=== PATIENT | female | born 1985 | race Caucasian/White ===

== ENCOUNTER 2016-08-07 10:21 | Emergency (ER) | payer BC, OTHER ==
[~2016-08-07] VITALS: Ht 167.6 cm; Wt 53.5 kg
[~2016-08-07 10:21] MED LIST: DIAZ2TAB2 PO; FLUO10TA3 PO; LORA10TA51 PO; MULT-884 PO; VNTHFA/IN PO
[2016-08-07 10:32] VITALS: TEMP 36.9; Ht 167.6 cm; Wt 53.5 kg
[2016-08-07] MEDS ORDERED: LISD50CA4 PO (10:41)
[2016-08-07] MEDS ORDERED: CLON1TAB3 PO (10:41)
[2016-08-07] MEDS ORDERED: ACET325T96 PO (10:42)
[2016-08-07] MEDS ORDERED: DiphenhydrAMINE HCL 50 MG/ML VIAL IV STA (11:00)
[2016-08-07] MEDS ORDERED: FAMOTIDINE 20MG/102 ML D5W IV STA (11:00)
[2016-08-07] MEDS ORDERED: DEXAMETHASONE SOD INJ 4 MG/ML VIAL IV STA (11:00)
[2016-08-07 11:13] VITALS: O2SAT 100
--- NOTE | 2016-08-07 11:41 | DIAGNOSTIC IMAGING REPORT ---
HEAD CT NONCONTRAST CT DOSE: 537.48 mGy.cm HISTORY: Trauma hit head, frontal headache TECHNIQUE: Multiaxial CT images of the head were performed without the use of intravenous contrast. Comparison: None. Findings: The paranasal sinuses and mastoid air cells are clear. The calvarium and skull base are intact. The ventricles and sulci are within normal limits. There is no mass, hematoma, midline shift, or acute infarct. Impression: No acute intracranial abnormality. Electronically signed by: Jerry Krause M.D. 08/07/2016 11:40 AM Dictated Date/Time: 08/07/2016 11:40 AM
[2016-08-07 11:43] LABS: MEAN CELL VOLUME 86.6 fL (80-100); MEAN CORPUSCULAR HGB CONC 33.4 g/dl (32-36); MEAN PLATELET VOLUME 8.5 fL (7.4-10.4); PLATELET COUNT 316 K/uL (130-400); RED BLOOD COUNT 4.04 M/uL (4.2-5.4); WHITE BLOOD COUNT 3.29 K/uL (4.8-10.8)
[2016-08-07 11:44] LABS: BUN/CREATININE RATIO 7.8 (10-20); CALCIUM 8.9 mg/dl (8.5-10.1); POTASSIUM 3.8 mmol/L (3.5-5.1)
[2016-08-07 11:53] LABS: BASO ABS # 0.03 K/uL (0-0.2); BASOPHIL % 0.9 %; COMPLETE YES; EOSINOPHIL % 7.9 %; LYMPH ABS # 1.21 K/uL (1.2-3.4); LYMPHOCYTE % 36.8 %; MYELOCYTE % 0.9 %; NEUTROPHILS % 41.2 %
[2016-08-07] MEDS ORDERED: MoRPHine SULFATE 4 MG/ML 1 ML CARP\\VIAL IV STA (13:14)
[2016-08-07] MEDS ORDERED: ONDANSETRON INJ 2 MG/ML 2 ML VIAL IV STA (13:14)
[2016-08-07] MEDS ORDERED: PRED50TA PO (14:25)
[2016-08-07] MEDS ORDERED: OXYCODONE IR HOME PACK PO ONE (14:30)
[2016-08-07 14:33] VITALS: BP 109/71; PULSE 83; O2SAT 96
--- NOTE | 2016-08-07 20:11 | EMERGENCY ROOM VISIT NOTE ---
History Report prepared by Lewisibattila: Marly Gonzales Under the Supervision of: Dr. Jamir Way M.D. First contact with patient: 10:57 Chief Complaint: HEADACHE Stated Complaint: MARTINEZ, DIZZY, SWOLLEN EYES, ITCHY, HIT HEAD MONDAY History of Present Illness The patient is a 31 year old female who presents to the Emergency Room with complaints of a worsening headache for the past 2 days. She is accompanied by her . The patient rates her current discomfort as a 5/10. She reports Monday night, she was shutting off lights in her home and getting ready to go to bed, when she accidentally ran into a wall and hit her head off the corner of the wall. She saw "stars" but denies any loss of consciousness. She immediately began to experience a headache, and states she has been alternating Tylenol and Ibuprofen for her pain. They have provided minimal relief. Yesterday she started to feel dizzy and stumbled in her closet, but was able to catch herself before fell. She states her left eye has been ecchymotic since the fall, since her face partly hit the wall, but she started to experience itchiness in the eye yesterday. The patient does have NSAID sensitivity, but notes she chose to take the Ibuprofen anyway for her discomfort. At 0330 this morning, she took 2 Tylenol and 1 Klonopin. Her reports she has also been increasingly confused and the patient notes she is having a hard time focusing since the fall. She admits to a new rash over her chest and low back but notes she has history of eczema. She denies any recent contact with any new plants, products or pets. The patient denies fevers, chills, diaphoresis, visual changes, neck pain, chest pain, breathing difficulties, nausea, vomiting , abdominal pain, back pain, melena, hematochezia, urinary symptoms, numbness, weakness, lymphadenopathy, or other complaints. Source of History: patient, spouse/significant other () Onset: 2 days ago Position: head Symptom Intensity: 5/10 Timing: worsening Modifying Factors (Relieving): tylenol, ibuprofen Associated Symptoms: + rash Review of Systems See HPI for pertinent positives and negatives. A total of ten systems were reviewed and were otherwise negative. Past Medical & Surgical Medical Problems: (1) Asthma (2) Migraine (3) Von Willebrand disease Family History FHx: gallbladder disease Kidney disease Lung disease Social History Smoking Status: Never Smoker Alcohol Use: occasionally Drug Use: none Marital Status: Housing Status: lives with family Occupation Status: employed Current/Historical Medications Scheduled Albuterol Hfa (Ventolin Hfa), 2 PUFF PO UD Lisdexamfetamine Dimesylate (Vyvanse), 50 MG PO DAILY Loratadine (Claritin), 10 MG PO DAILY Multiple Vitamin (Multi Vitamin Daily), 1 TAB PO DAILY Prednisone (Prednisone), 50 MG PO DAILY Scheduled PRN Acetaminophen Tab (Tylenol), 650 MG PO Q4 PRN for Headache or Pain Clonazepam (Klonopin), 1 MG PO DAILY PRN for Anxiety/Agitation Allergies Coded Allergies: NSAIDs (Verified Allergy, Unknown, bruising, 08/07/16) Physical Exam Vital Signs Date Time Temp Pulse Resp B/P Pulse Ox O2 Delivery O2 Flow Rate FiO2 08/07/16 14:33 83 16 109/71 96 Room Air 08/07/16 12:47 68 16 105/69 100 Room Air 08/07/16 11:13 100 Room Air 08/07/16 10:32 36.9 94 16 113/81 100 Room Air Physical Exam GENERAL: Awake, alert, uncomfortable-appearing, in no distress HENT: Normocephalic, atraumatic. Oropharynx unremarkable. EYES: Periorbital edema bilaterally. Normal conjunctiva. Sclera non-icteric. NECK: Supple. No nuchal rigidity. FROM. No JVD. RESPIRATORY: Clear to auscultation. CARDIAC: Regular rate, normal rhythm. Extremities warm and well perfused. Pulses equal. ABDOMEN: Soft, non-distended. No tenderness to palpation. No rebound or guarding. No masses. RECTAL: Deferred. MUSCULOSKELETAL: Chest examination reveals no tenderness. The back is symmetrical on inspection without obvious abnormality. There is no CVA tenderness to palpation. No joint edema. LOWER EXTREMITIES: Calves are equal size bilaterally and non-tender. No edema. No discoloration. NEURO: Normal sensorium. No sensory or motor deficits noted. SKIN: Faint erythematous rash with secondary excoriation on upper chest, neck and low back, the hands and legs are spared. Medical Decision & Procedures ER Provider Diagnostic Interpretation: This CT scan was reviewed and interpreted by the radiologist and reviewed by myself. HEAD CT NONCONTRAST CT DOSE: 537.48 mGy.cm HISTORY: Trauma hit head, frontal headache TECHNIQUE: Multiaxial CT images of the head were performed without the use of intravenous contrast. Comparison: None. Findings: The paranasal sinuses and mastoid air cells are clear. The calvarium and skull base are intact. The ventricles and sulci are within normal limits. There is no mass, hematoma, midline shift, or acute infarct. Impression: No acute intracranial abnormality. Electronically signed by: Jerry Krause M.D. 08/07/2016 11:40 AM Laboratory Results 08/07/16 11:10 Red Blood Count 4.04, Mean Corpuscular Volume 86.6, Mean Corpuscular Hemoglobin 29.0, Mean Corpuscular Hemoglobin Concent 33.4, Mean Platelet Volume 8.5 08/07/16 11:10 Test 08/07/16 11:10 08/07/16 11:15 White Blood Count 3.29 K/uL (4.8-10.8) Red Blood Count 4.04 M/uL (4.2-5.4) Hemoglobin 11.7 g/dL (12.0-16.0) Hematocrit 35.0 % (37-47) Mean Corpuscular Volume 86.6 fL (80-100) Mean Corpuscular Hemoglobin 29.0 pg (25-34) Mean Corpuscular Hemoglobin Concent 33.4 g/dl (32-36) Platelet Count 316 K/uL (130-400) Mean Platelet Volume 8.5 fL (7.4-10.4) RDW Standard Deviation 44.8 fL (36.4-46.3) RDW Coefficient of Variation 14.2 % (11.5-14.5) Neutrophils % (Manual) 41.2 % Lymphocytes % (Manual) 36.8 % Monocytes % (Manual) 12.3 % Eosinophils % (Manual) 7.9 % Basophils % (Manual) 0.9 % Myelocytes % 0.9 % Neutrophils # (Manual) 1.36 K/uL (1.4-6.5) Total Absolute Neutrophils 1.36 K/uL (1.4-6.5) Lymphocytes # (Manual) 1.21 K/uL (1.2-3.4) Total Absolute Lymphocytes 1.21 K/uL (1.2-3.4) Monocytes # (Manual) 0.40 K/uL (0.11-0.59) Eosinophils # (Manual) 0.26 K/uL (0-0.5) Basophils # (Manual) 0.03 K/uL (0-0.2) Myelocytes # 0.03 K/uL (0-0) Red Blood Cell Morphology Unremarkable Anion Gap 9.0 mmol/L (3-11) Est Creatinine Clear Calc Drug Dose 67.6 ml/min Estimated GFR () 85.7 Estimated GFR (Non- 74.0 BUN/Creatinine Ratio 7.8 (10-20) Calcium Level 8.9 mg/dl (8.5-10.1) Urine Test NEG (NEG) Laboratory results reviewed by me Medications Administered Medications (Trade) Dose Ordered Sig/Toby Route Start Time Stop Time Status Last Admin Dose Admin Diphenhydramine HCl (Benadryl Inj) 50 mg NOW STAT IV 08/07/16 11:00 08/07/16 11:04 DC 08/07/16 11:16 50 MG Dexamethasone Sodium Phosphate (Decadron Inj) 10 mg NOW STAT IV 08/07/16 11:00 08/07/16 11:04 DC 08/07/16 11:16 10 MG Famotidine (Pepcid 20mg/100 ml) 20 mg ONE STAT IV 08/07/16 11:00 08/07/16 11:04 DC 08/07/16 11:16 20 MG Morphine Sulfate (MoRPHine SULFATE INJ) 4 mg NOW STAT IV 08/07/16 13:14 08/07/16 13:15 DC 08/07/16 13:25 4 MG Ondansetron HCl (Zofran Inj) 4 mg NOW STAT IV 08/07/16 13:14 08/07/16 13:15 DC 08/07/16 13:25 4 MG Oxycodone HCl (Roxicodone Immediate Rel 5MG Home Pack) 1 homepack UD ONCE PO 08/07/16 14:30 08/07/16 14:31 DC 08/07/16 14:30 1 HOMEPACK ED Course 1059: The patient was evaluated in room C3. A complete history and physical exam was performed. 1100: Famotidine 20 mg IV, Decadron 10 mg IV, Benadryl 50 mg IV. 1314: Zofran 4 mg IV, Morphine Sulfate 4 mg IV. 1400: I reevaluated the patient. She is feeling much better. I discussed her results and discharge instructions and she verbalized complete understanding and agreement. 1430: Oxycodone HCl 1 homepack PO. Medical Decision Triage Nursing notes reviewed. The patient's presentation and history were concerning for a rash and a head injury. Etiologies such as concussion, allergic reaction, dermatitis, migraine, tumor, headache, sinus thrombosis, sinusitis, ICH, SAH, infection, as well as others were entertained. The patient was evaluated. She had some mild swelling in the periorbital area. She had a mild rash present. This seemed to be most consistent with a dermatitis, possibly allergic in nature. Contacted also be possible. She was treated with antihistamines and steroids. She was feeling better with regards to the rash and seemed to be improved. The patient had a CT imaging study performed due to her head injury and concussive like symptoms. This was negative for any significant trauma. She had a mild leukopenia on CBC and chem strip panel was unremarkable. Urine test was negative. The patient was given a small dose of morphine and Zofran for her headache. On reassessment she was feeling better. I discussed conservative management. Patient does not have any nuchal rigidity or fever. She had symptoms developed after hitting her head. The exact etiology of her rash was not obvious. This was not purpuric or vesicular. There is no pustular findings. She had no involvement of her hands. Nail beds are normal. The patient does note history of allergy testing but this was about 4 or 5 years ago. This is done for environmental reasons. I did give her concussion instructions. She was given a work note. She was going to follow up with her primary physician. The patient will be placed on prednisone for 4 additional days. She will use over- the-counter antihistamines. The patient was given a small home pack of pain medication in case her symptoms lingered. She does note having a sensitivity to NSAIDs and did take NSAIDs prior to the onset of the rash. I did advise her to stay away from NSAIDs as this may be a cause. The patient was in agreement. If she worsens in any way she will be back to the emergency department for reevaluation. By the evaluation outlined above other emergent etiologies such as those listed in the differential, as well as others, were deemed relatively unlikely. The patient and were informed about the findings as listed above. All questions were answered and they were pleased with the treatment. Return instructions were outlined and the patient was discharged in stable condition. The patient was referred to her PCP for follow-up this week for a recheck of the current condition. The chart was completed utilizing [employer] Speech voice recognition software. Grammatical errors, random word insertions, pronoun errors, and incomplete sentences are an occasional consequence of this system due to software limitations, ambient noise, and hardware issues. Any formal questions or concerns about the content, text, or information contained within the body of this dictation should be directly addressed to the physician for clarification. Impression Primary Impression: Headache Additional Impressions: Concussion Allergic reaction Scribe Attestation The scribe's documentation has been prepared under my direction and personally reviewed by me in its entirety. I confirm that the note above accurately reflects all work, treatment, procedures, and medical decision making performed by me. Departure Information Dispostion Home / Self-Care Prescriptions Prednisone (Prednisone) 50 Mg Tab 50 MG PO DAILY for 4 Days, #4 TAB Prov: Jamir Way MD 08/07/16 Referrals Saulo Love M.D. (PCP) Patient Instructions My [facility] Additional Instructions CONCUSSION DISCHARGE INSTRUCTIONS: What is a concussion? A concussion is a disturbance in the function of the brain caused by a direct or indirect force to the head. It results in a variety of symptoms like: headache, balance problems, nausea, vomiting, vision problems, hearing problems/ringing, drowsiness, irritability, and/or difficulty concentrating or remembering. A concussion may, or may not involve memory problems or loss of consciousness. Concussion instructions: Stop and stay away from ALL physical activity until you are symptom free from: Headaches Balance problems Feeling "dinged" Poor concentration Drowsy Fatigued Rest and avoid strenuous activities for the next few days. Get 8-10 hours of sleep per night. Limit activities that involve significant concentration and attention during this time to speed your recovery. This includes studying, attending school, playing video games, and heavy reading. Your brain needs to rest. Eat right and eat often. Now is the time to feed your brain. Well balanced diets that avoid high sugar foods, sodas, caffeine, etc. are better for your brain. NO ALCOHOL OR DRUGS! Avoid stimulants like caffeine, red bull, mountain dew, "energy" drinks, etc. Tylenol(acetaminophen) may be used for headaches. Use 1000mg every six hours as needed. Avoid using more than 4000mg in a 24 hour period. Avoid anti-inflammatories such as aspirin, ibuprofen, Alleve, naprosyn, Motrin, or Advil as these can interfere with blood clotting and lead to bleeding within the brain after a traumatic injury. Stepwise return to sports for athletes: You may progress to the next step after 24 hours if you are symptom free. If you experience symptoms, you must return to the previous stage and try again after another 24 hours of rest and being symptom free. Best case scenario is full contact game play in 7 days from the time of injury. Remember repeat concussions are worse than the first. Time invested in recovery will allow for better performance and less downtime in the future. If you have any questions see your hardware trainer or make an appointment to see one of the team physicians. 1) No activity, complete rest for 3 days. Once all symptoms have resolved, report to the team physician or hardware trainer to be cleared to progress to step 2. 2) Start light aerobic exercise, such as walking or stationary cycling, no resistance training permitted.(Day 4) 3) Sport specific exercises. Add light resistance slowly. Go slow to allow your body to readapt. (Day 5) 4) Non-contact full speed practice. (Day 6) 5) Full contact practice and/or game play.(Day 7) POST CONCUSSIVE SYNDROME: Occasionally patients can experience a postconcussive syndrome which includes prolonged headaches and memory difficulties. This may occur over the next several days, weeks or rarely, even months. It is important to have a primary care physician follow-up in order to help if the situation develops. Problems could arise over the next 24 to 48 hours. You should not be left alone and MUST go to the hospital immediately if you: -Have a headache that suddenly gets worse. -Are very drowsy or cannot be woken up from sleep. -Can't recognize people or places. -Have repeated vomiting. -Behave unusually, seemed confused, or start acting irritable. -Have a seizure (arms and legs start jerking uncontrollably). -Have weak or numb arms or legs. -Are unsteady on your feet -Experience slurred speech or difficulty speaking. ALLERGIC REACTION INSTRUCTIONS: DO NOT drive, drink alcohol, operate machinery, or perform dangerous activities today. You were given medications in the ER that can affect your ability to safely function or operate a vehicle. Prednisone 50mg: Once daily until the prescription is finished. It is best to take this earlier in the day as some patients note occasional difficulty falling asleep when taken in the late evening. Diphenhydramine(Benadryl) 25mg: use 25 to 50 mg every six hours for swelling, itching, or hives. This medication is sedating and will cause drowsiness. Avoid alcohol, operating machinery or dangerous equipment, working on ladders or roofs, DRIVING, or situations where being under the influence may be dangerous. Zantac 75: Take two pills twice a day along with Benadryl as needed for swelling , itching, or hives. Most people know this for its affect on the stomach, but it also acts similar to, but less potent than Benadryl for allergic reactions. Both the Benadryl and the Zantac are available [id number]. Continue current medications. Return to the emergency department for worsening of your rash, swelling of your face, lips, tongue, or throat, difficulty breathing, vomiting, or as needed. Follow-up with your primary care physician in 2 to 3 days for a recheck of your current condition. Problem Qualifiers
== END 2016-08-07 14:34 | disposition home or self-care (01) ==
LOC: C.EDB 10:25 → C.EDC 14:34
DX: S06.0X0A Concussion without loss of consciousness, initial encounter (principal); W22.01XA Walked into wall, initial encounter; R51 Headache; T78.40XA Allergy, unspecified, initial encounter; X58.XXXA Exposure to other specified factors, initial encounter; J45.909 Unspecified asthma, uncomplicated; D68.0 Von Willebrand disease; Z79.899 Other long term (current) drug therapy; Z88.8 Allergy status to other drugs, medicaments and biological substances; Z83.79 Family history of other diseases of the digestive system; Z84.1 Family history of disorders of kidney and ureter

== ENCOUNTER → 2016-08-11 | Outpatient (CLI) | payer OTHER ==
[~2016-08-11] MED LIST changes: +ACET325T96 PO; +CLON1TAB3 PO; -DIAZ2TAB2 PO; -FLUO10TA3 PO; +GADAVIST IV PRN; +LISD50CA4 PO; +PRED50TA PO
--- NOTE | 2016-08-11 08:04 | DIAGNOSTIC IMAGING REPORT ---
MRI OF THE BRAIN WITHOUT AND WITH IV CONTRAST CLINICAL HISTORY: HEAD Trauma, gait Instability, headache COMPARISON STUDY: No previous studies for comparison. TECHNIQUE: Utilizing a 1.5 Naz magnet and dedicated coil, multiplanar, multiecho imaging of the brain was performed pre and postcontrast administration. IV administration of 8.5 mL of Gadavist contrast was uneventful. FINDINGS: Normal signal characteristics of the cerebellar as well as cerebral hemispheres. Ventricular system is midline. Sella and parasellar regions are unremarkable. Postcontrast images show no evidence for an enhancing lesion. IMPRESSION: Normal study. Electronically signed by: Jerry Krause M.D. 08/11/2016 8:03 AM Dictated Date/Time: 08/11/2016 7:52 AM
== END | disposition home or self-care (01) ==
LOC: C.MRI 07:02
PROVIDERS: ATTEND Family Medicine
DX: S09.90XA Unspecified injury of head, initial encounter (principal); X58.XXXA Exposure to other specified factors, initial encounter; R26.9 Unspecified abnormalities of gait and mobility; R51 Headache